=== PATIENT | male | born 1930 | race Hispanic/Latino ===

== ENCOUNTER 2019-08-12 15:21 | Inpatient (IN) | payer OTHER ==
[~2019-08-12] VITALS: Ht 172.7 cm; Wt 74.1 kg
--- OUTSIDE RECORDS SUMMARY | 2019-08-12 16:06 | XMS REPORT ---
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
--- OUTSIDE RECORDS SUMMARY | 2019-08-12 16:06 | XMS REPORT ---
Author Author Valerie Christiansen [facility] eClinicalWorks Address Unknown Phone Unavailable Care Team Providers Care Geotechnical Engineering Technician Name Role Phone Valerie Christiansen CP Unavailable Allergies, Adverse Reactions, Alerts Substance Reaction Event Type N.K.D.A. 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 Problem Osteoporosis M81.0 Active Medications Medication Code System Code Instructions Start Date End Date Status Dosage Simvastatin ND 99179096694 10 MG Orally Once a day Active 1 tablet in the evening Lisinopril ND 08198693856 30 MG Orally Once a day Active 1 tablet Alendronate Sodium ND 80951057845 70 MG Orally once a week Active 1 tablet Hydroxychloroquine Sulfate ND 72736832872 200 MG Orally twice a day February 26, 2018 Active 1 tablet with food or milk Folic Acid ND 59751112331 1 MG Orally Once a day Jul 08, 2018 Active 1 tablet Methotrexate NDC 0 2.5mg Orally Once a week Active 6 tablets GlipiZIDE-Metformin HCl ND 25298534872 2.5-500 MG Orally Once a day Active 1 tablet with a meal Vital Signs Date/Time: Aug 09, 2018 BMI 27.91 Index Weight 157.6 lbs Height 63 in Temperature 97.3 F Cardiac Monitoring Heart Rate 72 /min Blood Pressure Diastolic 66 mm Hg Blood Pressure Systolic 116 mm Hg Results Name Result Date Reference Range Unit Abnormality Flag 1055 SEDIMENTATION RATE ----SEDIMENTATION RATE 5 [id number] 0-15 MM/HOUR 1000 CBC W/AUTO DIFF ----PLATELET COUNT 148 15706311 130-400 K/UL ----MCV 94.3 74663147 80.0-100.0 fL ----HEMATOCRIT 38.2 36700243 37.0-49.0 % ----BASOPHILS 0.8 01253223 0.0-2.0 % ----MCHC 34.8 35506992 32.0-35.5 G/DL ----EOSINOPHILS 6.0 93891327 0.0-7.0 % ----MCH 32.8 93453865 27.0-34.0 PG ----MONOCYTES 7.2 09527781 4.0-13.0 % ----WBC 5.3 41216944 4.0-11.0 K/UL ----HEMOGLOBIN 13.3 51339530 13.0-17.0 G/DL ----RBC 4.05 [id number] 4.10-5.70 M/UL L ----LYMPHOCYTES 16.6 91938974 19.0-48.0 % L ----RDW 12.8 38469032 11.0-15.0 % ----NEUTROPHILS 69.4 27344958 40.0-74.0 % 9179 COMPREHENSIVE METABOLIC PANEL ----CALC A/G RATIO 1.4 98920984 1.0-2.6 RATIO ----CALC GLOBULIN 2.7 18673771 1.9-3.7 G/DL ----ALKALINE PHOSPHATASE 54 76920759 40-125 U/L ----BILIRUBIN, TOTAL 0.6 63429989 <=1.2 MG/DL ----CHLORIDE 103 63992522 95-107 MEQ/L ----ALT 12 93055892 5-50 U/L ----POTASSIUM 4.4 73999299 3.5-5.4 MEQ/L ----AST 19 79015964 9-50 U/L ----SODIUM 140 96479656 133-146 MEQ/L ----CALC BUN/CREAT 20 87147305 6-28 RATIO ---- eGFR NON- AMER. 69 19940397 >60 ML/MIN/1.73 ----CALCIUM 9.5 25917107 8.5-10.5 MG/DL ----CARBON DIOXIDE 27 20180809 19-31 MEQ/L ----ALBUMIN 3.9 20180809 3.5-5.2 G/DL ----PROTEIN, TOTAL 6.6 20180809 6.1-8.3 G/DL ----GLUCOSE 132 20180809 70-99 MG/DL H ----BUN 20 20180809 8-23 MG/DL ----CREATININE 0.99 20180809 0.80-1.40 MG/DL ---- eGFR AMER. 80 20180809 >60 ML/MIN/1.73 5083 HIGH SENSITIVITY CRP ----HIGH SENSITIVITY CRP 1.3 20180809 SEE BELOW MG/L Summary Purpose eClinicalWorks Submission
--- OUTSIDE RECORDS SUMMARY | 2019-08-12 16:06 | XMS REPORT ---
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
--- OUTSIDE RECORDS SUMMARY | 2019-08-12 16:06 | XMS REPORT ---
Author Author Valerie Christiansen Organization eClinicalWorks Address Unknown Phone Unavailable Care Team Providers Care Placement Assistant Name Role Phone Valerie Christiansen CP Unavailable [...] Instructions Start Date End Date Status Dosage Folic Acid [facility] 03574970314 1 MG Orally Once a day Jul 08, 2018 Active 1 tablet Results No Known Results Summary Purpose eClinicalWorks Submission
--- OUTSIDE RECORDS SUMMARY | 2019-08-12 16:06 | XMS REPORT ---
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 Problem Osteoporosis M81.0 Active Medications Medication Code System Code Instructions Start Date End Date Status Dosage Simvastatin ND 29262939899 10 MG Orally Once a day Active 1 tablet in the evening Folic Acid ND 23888190942 1 MG Orally Once a day March 14, 2018 Active 1 tablet Ibuprofen NDC 08310104641 200 MG Orally Three times a day Active 1 tablet with food or milk as needed Lisinopril NDC 18922672897 30 MG Orally Once a day Active 1 tablet Hydroxychloroquine Sulfate ND 73514163760 200 MG Orally twice a day February 26, 2018 Active 1 tablet with food or milk Methotrexate NDC 0 2.5mg Orally Once a week Active 6 tablets Alendronate Sodium ND 29264404211 70 MG Orally once a week Active 1 tablet GlipiZIDE-Metformin HCl ND 95523227505 2.5-500 MG Orally Once a day Active 1 tablet with a meal Vital Signs Date/Time: May 09, 2018 BMI 27.79 Index Weight 156.9 lbs Height 63 in Temperature 97.8 F Cardiac Monitoring Heart Rate 83 /min Blood Pressure Diastolic 69 mm Hg Blood Pressure Systolic 153 mm Hg Results No Known Results Summary Purpose eClinicalWorks Submission
--- OUTSIDE RECORDS SUMMARY | 2019-08-12 16:06 | XMS REPORT ---
Author Author Dwayne Guerrier Organization eClinicalWorks Address Unknown Phone Unavailable Care Team Providers Care Poker In Name Role Phone Dwayne Guerrier CP Unavailable [...]
--- OUTSIDE RECORDS SUMMARY | 2019-08-12 16:06 | XMS REPORT | Continuity of Care Document ---
Author Author [facility] Address Unknown Phone Unavailable Care Team Providers Care Warehouse Shipping Clerk Name Role Phone M2 [employer] [facility] Unavailable Unavailable Problems Problem Status Onset Date Classification Date Reported Comments Source Long-term use of high-risk medication Active Diagnosis 02/13/2019 Robe Guerrier Knee osteoarthritis Active Problem 02/13/2019 Robe Fareed Rash Active Problem 02/13/2019 Robe Fareed Inflammatory arthritis Active Problem 02/13/2019 Robe Guerrier Rheumatoid arthritis with positive rheumatoid factor Active Diagnosis 02/13/2019 Robe Guerrier Osteoporosis Active Diagnosis 02/13/2019 Robe Guerrier Back pain Active Diagnosis 02/13/2019 Robe Guerrier Medications Medication Details Route Status Patient Instructions Ordering Provider Order Date Source Methotrexate 6 tablets Orally Active 2.5mg Orally Once a week [place] 02/07/2019 Robe Guerrier Cyclobenzaprine HCl 1 tablet as needed Orally Active 5 MG Orally qhs [place] 02/07/2019 Robe Guerrier Folic Acid 1 tablet Orally Active 1 MG Orally Once a day [place] 07/08/2018 Robe Guerrier Methotrexate 4 tabs x1 wk, then take take 6 tab altogther Orally Active 2.5mg Orally Once a week [place] 03/14/2018 Robe Guerrier Folic Acid 1 tablet Orally Active 1 MG Orally Once a day [place] 03/14/2018 Robe Guerrier Prednisone Taper 3 tablets for 5 days, 2 tablets for 5 days and then 1 tablet for 5 days NA Active 5mg Kuldip 02/26/2018 Robe Guerrier Hydroxychloroquine Sulfate 1 tablet with food or milk Orally Active 200 MG Orally twice a day [place] 02/26/2018 Robe Guerrier Ibuprofen 1 tablet with food or milk as needed Orally Active 200 MG Orally Three times a day [place] Robe Guerrier GlipiZIDE-Metformin HCl 1 tablet with a meal Orally Active 2.5- 500 MG Orally Once a day [place] Robe Guerrier Lisinopril 1 tablet Orally Active 30 MG Orally Once a day Kuldip Guerrier Alendronate Sodium 1 tablet Orally Active 70 MG Orally once a week [place] Robe Guerrier Simvastatin 1 tablet in the evening Orally Active 10 MG Orally Once a day [place] Robe Guerrier Methotrexate 6 tablets Orally Active 2.5mg Orally Once a week Kuldip Guerrier Allergies, Adverse Reactions, Alerts Substance Category Reaction Severity Reaction type Status Date Reported Comments Source N.K.D.A. Adverse Reaction Info Not Available Adverse Reaction Active 02/07/2019 Robe Guerrier Immunizations Immunization Date Given Site Status Last Updated Comments Source pneumococcal 23-valent vaccine<sup>1</sup> 09/20/2007 Right deltoid completed [facility] 1Result Comment: [id number] [employer], exp 03/29/2009 ANATOLY [place] influenza virus vaccine, inactivated 09/20/2007 Left deltoid completed [facility] [place] Results No Data Provided for This Section Pathology Reports No Data Provided for This Section Diagnostic Reports Report Value Date Source Bone Density-Dual Energy Absorptionmetry - Bone Density- Dual Energy Absorptionmetry MALE BONE DENSITY EVALUATION: 03/20/2014 CLINICAL DATA: Osteoporosis. FINDINGS: Bone density evaluation was performed 03/20/2014 on the AP L1-L4 region of spine using Lunar Dual Energy X-Ray Absorptiometry. The BMD average for the exam is 1.093 g/cm2. The T-score is -1.10 and the Z-score is -0.30. These values indicate 96.0% for age-matched controls. This matches the World Health Organization's criteria for osteopenia and places the patient at a medium risk for fracture. An additional bone density evaluation was performed 03/20/2014 on the right femur neck using Lunar Dual Energy X-Ray Absorptiometry. The BMD average for the exam is 0.724 g/cm2. The T-score is -2.70 and the Z-score is -1.10. These values indicate 84.0% for age-matched controls. This matches the World Health Organization's criteria for osteoporosis and places the patient at a high risk for fracture. An additional bone density evaluation was performed 03/20/2014 on the right hip using Lunar Dual Energy X-Ray Absorptiometry. The BMD average for the exam is 0.763 g/cm2. The T-score is -2.30 and the Z-score is -1.10. These values indicate 82.0% for age-matched controls. This matches the World Health Organization's criteria for osteopenia and places the patient at a medium risk for fracture. An additional bone density evaluation was performed 03/20/2014 on the left femur neck using Lunar Dual Energy X-Ray Absorptiometry. The BMD average for the exam is 0.706 g/cm2. The T-score is -2.80 and the Z-score is -1.20. These values indicate 82.0% for age-matched controls. This matches the World Health Organization's criteria for osteoporosis and places the patient at a high risk for fracture. An additional bone density evaluation was performed 03/20/2014 on the left hip using Lunar Dual Energy X-Ray Absorptiometry. The BMD average for the exam is 0.785 g/cm2. The T-score is -2.20 and the Z-score is -1.00. These values indicate 85.0% for age-matched controls. This matches the World Health Organization's criteria for osteopenia and places the patient at a medium risk for fracture. IMPRESSION: OSTEOPOROSIS Patient is at high risk for fracture. Dr. Bennie robins/cathy:03/23/2014 08:02:05 Salon Stylist: Qi Jarrett [facility] 03[facility]20/2014 [facility] [place] Consultation Notes No Data Provided for This Section Discharge Summaries No Data Provided for This Section History and Physicals No Data Provided for This Section Vital Signs Vital Sign Value Date Comments Source Weight 158 02/07/2019 Robe Guerrier Height 63 02/07/2019 Robe Guerrier Temperature Oral (F) 96.6 F 02/07/2019 Robe Guerrier Heart Rate 80 02/07/2019 Robe Guerrier Diastolic (mm Hg) 84 02/07/2019 Robe Guerrier Systolic (mm Hg) 130 02/07/2019 Robe Guerrier Weight 158.4 11/08/2018 Robe Guerrier Height 64 11/08/2018 Robe Guerrier Temperature Oral (F) 97.6 F 11/08/2018 Robe Guerrier Heart Rate 64 11/08/2018 Robe Guerrier Diastolic (mm Hg) 70 11/08/2018 Robe Guerrier Systolic (mm Hg) 128 11/08/2018 Robe Guerrier Weight 157.6 08/09/2018 Robe Guerrier Height 63 08/09/2018 Robe Guerrier Temperature Oral (F) 97.3 F 08/09/2018 Robe Guerrier Heart Rate 72 08/09/2018 Robe Guerrier Diastolic (mm Hg) 66 08/09/2018 Robe Guerrier Systolic (mm Hg) 116 08/09/2018 Robe Guerrier Weight 156.9 05/09/2018 Robe Guerrier Height 63 05/09/2018 Robe Guerrier Temperature Oral (F) 97.8 F 05/09/2018 Robe Guerrier Heart Rate 83 05/09/2018 Robe Guerrier Diastolic (mm Hg) 69 05/09/2018 Robe Guerrier Systolic (mm Hg) 153 05/09/2018 Robe Guerrier Weight 154 04/25/2018 Robe Guerrier Height 63 04/25/2018 Robe Guerrier Temperature Oral (F) 97.4 F 04/25/2018 Robe Guerrier Heart Rate 74 04/25/2018 Robe Guerrier Diastolic (mm Hg) 68 04/25/2018 Robe Guerrier Systolic (mm Hg) 142 04/25/2018 Robe Guerrier Weight 149 03/14/2018 Robe Guerrier Height 63 03/14/2018 Robe Guerrier Temperature Oral (F) 96.7 F 03/14/2018 Robe Guerrier Heart Rate 76 03/14/2018 Robe Guerrier Diastolic (mm Hg) 80 03/14/2018 Robe Guerrier Systolic (mm Hg) 122 03/14/2018 Robe Guerrier Encounters Location Location Details Encounter Type Encounter Number Reason For Visit Attending Provider ADM Date DC Date Status Source [facility] [place] [facility] [id number] Mallorie Garcia 03/20/2014 03/21/2014 [facility] [place] Procedures No Data Provided for This Section Assessment and Plan No Data Provided for This Section Plan of Care No Data Provided for This Section Social History No Data Provided for This Section Family History No Data Provided for This Section Advance Directives No Data Provided for This Section Functional Status No Data Provided for This Section
--- OUTSIDE RECORDS SUMMARY | 2019-08-12 16:06 | XMS REPORT | Summary of Care ---
Author Organization Unknown Address Unknown Phone Unavailable Encounter HQ Encntr_alias(FIN) [id number] Date(s): 03/20/14 - 03/20/14 [facility] Outpatient Imaging - [address] [address] [place] Discharge Disposition: Home Physician Attending: Mallorie Garcia MD Reason for Visit 733.90 - BONE Problem List No data available for this section Allergies, Adverse Reactions, Alerts Substance Reaction Severity Status NKDA Active Medications No data available for this section Medications Administered During Your Visit No data available for this section Immunizations Vaccine Date Refusal Reason influenza virus vaccine, inactivated 09/20/07 pneumococcal 23-valent vaccine1 09/20/07 1Result Comment: [id number] [employer], exp 03/29/2009
--- OUTSIDE RECORDS SUMMARY | 2019-08-12 16:06 | XMS REPORT ---
Author Author Valerie Christiansen [facility] eClinicalWorks Address Unknown Phone Unavailable Care Team Providers Care Natural Resource Manager Name Role Phone Valerie Christiansen Unavailable Allergies, Adverse Reactions, Alerts Substance Reaction Event Type N.K.D.A. 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 Medications Medication Code System Code Instructions Start Date End Date Status Dosage Ibuprofen ND 66281051867 200 MG Orally Three times a day Active 1 tablet with food or milk as needed Methotrexate NDC 0 2.5mg Orally Once a week March 14, 2018 Jul 12, 2018 Active 4 tabs x1 wk, then take take 6 tab altogther Folic Acid ND 48339159064 1 MG Orally Once a day March 14, 2018 Jul 12, 2018 Active 1 tablet GlipiZIDE-Metformin HCl ND 11910978639 2.5-500 MG Orally Once a day Active 1 tablet with a meal Lisinopril ND 83932180262 30 MG Orally Once a day Active 1 tablet Prednisone Taper ND 82362118711 5mg February 26, 2018 March 14, 2018 Inactive 3 tablets for 5 days, 2 tablets for 5 days and then 1 tablet for 5 days Alendronate Sodium ND 46332638131 70 MG Orally Active 1 tablet Hydroxychloroquine Sulfate ND 45114195536 200 MG Orally twice a day February 26, 2018 Active 1 tablet with food or milk Simvastatin ND 16487229122 10 MG Orally Once a day Active 1 tablet in the evening Vital Signs Date/Time: March 14, 2018 BMI 26.39 Index Weight 149 lbs Height 63 in Temperature 96.7 F Cardiac Monitoring Heart Rate 76 /min Blood Pressure Diastolic 80 mm Hg Blood Pressure Systolic 122 mm Hg Results No Known Results Summary Purpose eClinicalWorks Submission
--- OUTSIDE RECORDS SUMMARY | 2019-08-12 16:06 | XMS REPORT ---
Author Author Valerie Christiansen [facility] eClinicalWorks Address Unknown Phone Unavailable Care Team Providers Care Supervisor Boilermaking Shop Name Role Phone Valerie Christiansen Unavailable Allergies, Adverse Reactions, Alerts Substance Reaction Event Type N.K.D.A. Info Not Available Non Drug Allergy Problems Problem Type Condition Code Onset Dates Condition Status Assessment Osteoporosis M81.0 Active Assessment Rheumatoid arthritis with [...] Instructions Start Date End Date Status Dosage GlipiZIDE-Metformin HCl ND 68788519085 2.5-500 MG Orally Once a day Active 1 tablet with a meal Alendronate Sodium ND 39594799256 70 MG Orally once a week Active 1 tablet Simvastatin ND 88118311858 10 MG Orally Once a day Active 1 tablet in the evening Methotrexate ND 18797546720 2.5mg Orally Once a week February 07, 2019 Active 6 tablets Lisinopril ND 19295816308 30 MG Orally Once a day Active 1 tablet Cyclobenzaprine HCl ND 62262589130 5 MG Orally qhs February 07, 2019 Active 1 tablet as needed Folic Acid ND 30275423849 1 MG Orally Once a day Jul 08, 2018 Active 1 tablet Hydroxychloroquine Sulfate ND 66485735775 200 MG Orally twice a day February 26, 2018 Active 1 tablet with food or milk Vital Signs Date/Time: February 07, 2019 BMI 28 Index Weight 158 lbs Height 63 in Temperature 96.6 F Cardiac Monitoring Heart Rate 80 /min Blood Pressure Diastolic 84 mm Hg Blood Pressure Systolic 130 mm Hg Results Name Result Date Reference Range Unit Abnormality Flag CBC W/AUTO DIFF ----MONOCYTES 8.0 98678987 4.0-13.0 % ----LYMPHOCYTES 13.9 06990806 19.0-48.0 % L ----HEMOGLOBIN 13.5 23658016 13.0-17.0 G/DL ----HEMATOCRIT 38.1 21239033 37.0-49.0 % ----MCV 94.3 48167986 80.0-100.0 fL ----MCH 33.4 33394450 27.0-34.0 PG ----MCHC 35.4 15783097 32.0-35.5 G/DL ----PLATELET COUNT 156 89652329 130-400 K/UL ----RDW 13.2 51294116 11.0-15.0 % ----BASOPHILS 0.7 17572621 0.0-2.0 % ----WBC 7.0 32991264 4.0-11.0 K/UL ----NEUTROPHILS 72.7 18982996 40.0-74.0 % ----RBC 4.04 49738711 4.10-5.70 M/UL L ----EOSINOPHILS 4.7 20560246 0.0-7.0 % C-REACTIVE PROTEIN ----C-REACTIVE PROTEIN 0.4 52495140 <0.5 MG/DL COMPREHENSIVE METABOLIC PANEL ----CALC A/G RATIO 1.8 01100008 1.0-2.6 RATIO ----CALC GLOBULIN 2.5 10317413 1.9-3.7 G/DL ----ALKALINE PHOSPHATASE 64 20190207 40-125 U/L ----BILIRUBIN, TOTAL 0.5 16288795 <=1.2 MG/DL ----CHLORIDE 103 20190207 95-107 MEQ/L ----ALT 12 76185385 5-50 U/L ----POTASSIUM 4.2 55484984 3.5-5.4 MEQ/L ----AST 19 20190207 9-50 U/L ----SODIUM 143 32340226 133-146 MEQ/L ----CALC BUN/CREAT 20 66971292 6-28 RATIO ---- eGFR NON- AMER. 66 20190207 >60 ML/MIN/1.73 ----CALCIUM 10.2 20190207 8.5-10.5 MG/DL ----CARBON DIOXIDE 27 20190207 19-31 MEQ/L ----ALBUMIN 4.5 20190207 3.5-5.2 G/DL ----PROTEIN, TOTAL 7.0 20190207 6.1-8.3 G/DL ----GLUCOSE 86 20190207 70-99 MG/DL ----BUN 20 20190207 8-23 MG/DL ----CREATININE 1.02 20190207 0.80-1.40 MG/DL ---- eGFR AMER. 76 20190207 >60 ML/MIN/1.73 SEDIMENTATION RATE ----SEDIMENTATION RATE 7 20190207 0-15 MM/HOUR Summary Purpose eClinicalWorks Submission
--- OUTSIDE RECORDS SUMMARY | 2019-08-12 16:06 | XMS REPORT ---
Author Author Valerie Christiansen [facility], [place] eClinicalWorks Address Unknown Phone Unavailable Care Team Providers Care Intermission Coordinator Name Role Phone Valerie Christiansen Unavailable Allergies, Adverse Reactions, Alerts Substance Reaction Event Type N.K.D.A. 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 Active Problem Osteoporosis M81.0 Active Medications Medication Code System Code Instructions Start Date End Date Status Dosage Alendronate Sodium [facility] 14315899929 70 MG Orally once a week Active 1 tablet Methotrexate NDC 0 2.5mg Orally Once a week Active 6 tablets Folic Acid ND 85299698212 1 MG Orally Once a day Jul 08, 2018 Active 1 tablet Simvastatin ND 83125292954 10 MG Orally Once a day Active 1 tablet in the evening GlipiZIDE-Metformin HCl ND 40130987349 2.5-500 MG Orally Once a day Active 1 tablet with a meal Hydroxychloroquine Sulfate ND 20779751531 200 MG Orally twice a day February 26, 2018 Active 1 tablet with food or milk Lisinopril ND 28108112577 30 MG Orally Once a day Active 1 tablet Vital Signs Date/Time: Nov 08, 2018 BMI 27.19 Index Weight 158.4 lbs Height 64 in Temperature 97.6 F Cardiac Monitoring Heart Rate 64 /min Blood Pressure Diastolic 70 mm Hg Blood Pressure Systolic 128 mm Hg Results Name Result Date Reference Range Unit Abnormality Flag CBC W/AUTO DIFF ----MONOCYTES 7.5 20181108 4.0-13.0 % ----LYMPHOCYTES 16.9 89756895 19.0-48.0 % L ----HEMOGLOBIN 13.2 36658516 13.0-17.0 G/DL ----HEMATOCRIT 37.0 75616359 37.0-49.0 % ----MCV 93.4 77537811 80.0-100.0 fL ----MCH 33.3 18958463 27.0-34.0 PG ----MCHC 35.7 41097307 32.0-35.5 G/DL H ----PLATELET COUNT 178 82055293 130-400 K/UL ----RDW 13.3 40018542 11.0-15.0 % ----WBC 6.0 93687202 4.0-11.0 K/UL ----NEUTROPHILS 68.4 65055769 40.0-74.0 % ----BASOPHILS 0.7 53797056 0.0-2.0 % ----RBC 3.96 93755104 4.10-5.70 M/UL L ----EOSINOPHILS 6.5 36111258 0.0-7.0 % C-REACTIVE PROTEIN ----C-REACTIVE PROTEIN 0.3 32996616 <0.5 MG/DL COMPREHENSIVE METABOLIC PANEL ----CALC A/G RATIO 1.5 97917344 1.0-2.6 RATIO ----CALC GLOBULIN 2.7 23156269 1.9-3.7 G/DL ----ALKALINE PHOSPHATASE 63 60859644 40-125 U/L ----BILIRUBIN, TOTAL 0.7 20181108 <=1.2 MG/DL ----CHLORIDE 104 19340290 95-107 MEQ/L ----ALT 15 71440730 5-50 U/L ----POTASSIUM 4.3 64958563 3.5-5.4 MEQ/L ----AST 30 20181108 9-50 U/L ----SODIUM 142 27045446 133-146 MEQ/L ----CALC BUN/CREAT 22 20181108 6-28 RATIO ---- eGFR NON- AMER. 73 77495616 >60 ML/MIN/1.73 ----CALCIUM 9.7 45669843 8.5-10.5 MG/DL ----CARBON DIOXIDE 27 20181108 19-31 MEQ/L ----ALBUMIN 4.0 20181108 3.5-5.2 G/DL ----PROTEIN, TOTAL 6.7 20181108 6.1-8.3 G/DL ----GLUCOSE 74 20181108 70-99 MG/DL ----BUN 21 20181108 8-23 MG/DL ----CREATININE 0.94 20181108 0.80-1.40 MG/DL ---- eGFR AMER. 84 20181108 >60 ML/MIN/1.73 SEDIMENTATION RATE ----SEDIMENTATION RATE 6 20181108 0-15 MM/HOUR Summary Purpose eClinicalWorks Submission
--- OUTSIDE RECORDS SUMMARY | 2019-08-12 16:06 | XMS REPORT ---
Author Author Valerie Christiansen Organization eClinicalWorks Address Unknown Phone Unavailable Care Team Providers Care Position Description Manager Name Role Phone Valerie Christiansen CP Unavailable Allergies, Adverse Reactions, Alerts Substance Reaction Event Type N.K.D.A. Info Not Available Non Drug Allergy Problems Problem Type Condition Code Onset Dates Condition Status Assessment Rash R21 Active Assessment Long-term use of high-risk medication Z79.899 Active Assessment Osteoporosis M81.0 Active Problem Long-term use of high-risk medication [...] Orally Once a week Active 6 tablets Simvastatin ND 97606726946 10 MG Orally Once a day Active 1 tablet in the evening Ibuprofen ND 99582822335 200 MG Orally Three times a day Active 1 tablet with food or milk as needed GlipiZIDE-Metformin HCl ND 29927962429 2.5-500 MG Orally Once a day Active 1 tablet with a meal Folic Acid ND 57374526341 1 MG Orally Once a day March 14, 2018 Active 1 tablet Alendronate Sodium ND 37279432669 70 MG Orally once a week Active 1 tablet Hydroxychloroquine Sulfate ND 59204589591 200 MG Orally twice a day February 26, 2018 Active 1 tablet with food or milk Lisinopril ND 60310311839 30 MG Orally Once a day Active 1 tablet Vital Signs Date/Time: April 25, 2018 BMI 27.28 Index Weight 154 lbs Height 63 in Temperature 97.4 F Cardiac Monitoring Heart Rate 74 /min Blood Pressure Diastolic 68 mm Hg Blood Pressure Systolic 142 mm Hg Results No Known Results Summary Purpose eClinicalWorks Submission
[2019-08-12 16:51] LABS: BASOPHILS % 0.4 % (0.0-1.0); EOSINOPHILS # (AUTO) 0.1 (0.0-0.4); EOSINOPHILS % 1.4 % (0.0-6.0); HEMATOCRIT 38.3 % (38.2-49.6); HEMOGLOBIN 13.1 g/dL (14.0-18.0); LYMPHOCYTES # (AUTO) 0.9 (1.0-3.2); LYMPHOCYTES % 12.4 % (18.0-39.1); MEAN CORPUSCULAR HEMOGLOBIN 33.3 pg (28-32); MEAN CORPUSCULAR HGB CONC 34.2 g/dL (31-35); MEAN CORPUSCULAR VOLUME 97.5 fL (81-99); MONOCYTES # (AUTO) 0.5 (0.2-0.8); MONOCYTES % 6.4 % (4.4-11.3); NEUTROPHILS # (AUTO) 5.8 (2.1-6.9); NEUTROPHILS % 79.1 % (38.7-80.0); PLATELET COUNT 156 x10e3/uL (140-360); RED BLOOD COUNT 3.93 x10e6/uL (4.3-5.7); RED CELL DISTRIBUTION WIDTH 14.1 % (11.7-14.4)
[2019-08-12 17:00] LABS: PROTHROMBIN TIME 13.7 seconds (11.9-14.5)
[2019-08-12 17:01] LABS: PARTIAL THROMBOPLASTIN TIME 29.4 seconds (23.8-35.5)
[2019-08-12 17:10] LABS: ALBUMIN 3.9 g/dL (3.5-5.0); ALBUMIN/GLOBULIN RATIO 1.3 (0.8-2.0); ANION GAP 14.3 mmol/L (8-16); CALCIUM 9.8 mg/dL (8.4-10.2); CREATININE, SERUM 1.35 mg/dL (0.72-1.25); POTASSIUM 4.3 mmol/L (3.5-5.1)
[2019-08-12 17:16] LABS: CREATINE KINASE MB 3.2 ng/mL (0-5.0)
[2019-08-12] MEDS ORDERED: ATROPINE SULFATE 1 MG/ML VIAL IV ONE (17:30)
[2019-08-12] MEDS ORDERED: ASPIRIN 81 MG CHEW TAB PO ONE ×2 (19:00→23:15)
--- NOTE | 2019-08-12 19:21 | NUR ---
REPORT TO JACKY CARDENAS
--- OUTSIDE RECORDS SUMMARY | 2019-08-12 20:26 | XMS REPORT | Continuity of Care Document ---
Author Author [employer] Address Unknown Phone Unavailable Care Team Providers Care Jack Strip Assembler Name Role Phone [employer] Unavailable Unavailable Problems Problem Status Onset Date [...] Active 1 MG Orally Once a day [place] 03/14/2018 Robe Guerrier Prednisone Taper 3 tablets [...] 200 MG Orally Three times a day [place] Robe Guerrier GlipiZIDE-Metformin HCl 1 tablet with [...] 09/20/2007 Right deltoid completed Kek 1Result Comment: [id number] [employer], exp 03/29/2009 ANATOLY [place] influenza virus vaccine, inactivated 09/20/2007 Left deltoid completed Kek [facility] [place] Results No Data Provided for This Section [...] risk for fracture. Dr. Bennie robins/cathy:03/23/2014 08:02:05 Podiatrist Orthopedic: Qi Jarrett [facility] 03[facility]20/2014 [facility] No Data Provided for This [...] Provider ADM Date DC Date Status Source [facility] - [place] [facility] Di[facility] [phone] Mallorie Garcia 03/20/2014 03/21/2014 [facility] [place] Procedures No Data Provided for This Section [...]
[2019-08-12] MEDS ORDERED: FOLIC ACID1 MG PO (20:34)
[2019-08-12] MEDS ORDERED: METHOTREXATE2.5 MG PO (20:34)
[2019-08-12] MEDS ORDERED: MELOXICAM15 MG PO (20:34)
[2019-08-12] MEDS ORDERED: GLIPIZIDE-METF1 EAC1 PO (20:34)
[2019-08-12] MEDS ORDERED: ALENDRONATE SOD70 MG PO (20:34)
[2019-08-12] MEDS ORDERED: HYDROXYCHLOROQ200 MG PO (20:34)
[2019-08-12] MEDS ORDERED: LISINOPRIL30 MG PO (20:34)
--- NOTE | 2019-08-12 21:59 | NUR ---
PER DR. HEMPHILL, CATH TEAM AND PLATE FITTER NOTIFIED OF NEED FOR IMMEDIATE PLACEMENT OF TEMP PACEMAKER
--- NOTE | 2019-08-12 22:12 | NUR ---
DR. HEMPHILL EN ROUTE TO FACILITY
--- NOTE | 2019-08-12 22:13 | NUR ---
DR. DOEWLL AT PTS BEDSIDE; PT/FAMILY INFORMED OF POC, TEMP PACEMAKER PROCEDURE; CONSENTS REVIEWED, ALL AGREED UPON, AND SIGNED BY PTS SPOUSE
--- NOTE | 2019-08-12 22:14 | NUR ---
CATH TEAM INSTRUCTED TO TRANSFER PT TO RESIDENT MANAGER PER DR. HEMPHILL
[2019-08-12] MEDS ORDERED: MIDAZOLAM HCL 2 MG/2 ML VIAL ONE (22:22)
[2019-08-12] MEDS ORDERED: SODIUM CHLORIDE 0.9% 500ML 500 ML ONE (22:23)
[2019-08-12] MEDS ORDERED: LIDOCAINE HCL 2% LOCAL 20 ML VIAL ONE (22:23)
[2019-08-12] MEDS ORDERED: FENTANYL CITRATE/PF 100MCG/2 ML INJ ONE (22:23)
--- NOTE | 2019-08-12 22:31 | NUR ---
PT TRANSFERRED TO MEDICAID BUSINESS ANALYST
--- NOTE | 2019-08-12 22:35 | Diagnostic Imaging Report ---
Examination: Single AP view of the chest. COMPARISON: None. INDICATION: Bradycardia IMPRESSION: 1. Lines and Tubes: None 2. Lungs are relatively well-inflated. Central pulmonary venous congestion and patchy interstitial opacities extending from the lorrie suggesting interstitial edema. Patchy airspace opacities are noted in the right upper lung, with mild tram tracking, may represent superimposed pneumonia or aspiration in area of bronchiectasis or bronchitis. No consolidation or effusion. 3. Cardiomediastinal silhouette is normal. 4. No acute bony abnormalities. Signed by: Dr. Chris Minor M.D. on 08/12/2019 10:31 PM
[2019-08-12] MEDS ORDERED: SODIUM CHLORIDE 0.9% 1000ML 1,000 ML ONE (22:43)
[2019-08-12] MEDS ORDERED: MORPHINE SULFATE INJ 4 MG/ML INJ 1ML IV PRN (23:15)
[2019-08-12] MEDS ORDERED: HYDRALAZINE HCL 20 MG/ML VIAL IV PRN (23:15)
[2019-08-12] MEDS ORDERED: HYDROCODONE/APAP 5MG-325MG TAB PO PRN (23:15)
[2019-08-12] MEDS ORDERED: ZOLPIDEM TARTRATE 5 MG TAB PO PRN (23:15)
[2019-08-12] MEDS ORDERED: ALENDRONATE SODIUM 70 MG TAB PO SCH (23:15)
[2019-08-12] MEDS ORDERED: ONDANSETRON HCL INJ 2MG/ML 2ML 2 MG/ML VIAL IV PRN (23:15)
[2019-08-12] MEDS ORDERED: ACETAMINOPHEN 325 MG TAB PO PRN (23:15)
[2019-08-12 23:33] VITALS: BP_SYST 169; BP_SYST 175; BP_DIAS 82; BP_DIAS 85
[2019-08-12 23:45] VITALS: BP 175/82
[2019-08-13] VITALS (26 sets, daily range): BP systolic 136–173; BP diastolic 58–95
[2019-08-13] MEDS: SODIUM CHLORIDE 0.9% 1000ML 1,000 ML IV SCH ×3 (00:06→18:59)
[2019-08-13] MEDS ORDERED: HYDROMORPHONE 1MG/1ML INJ IV PRN ×3 (01:15→05:15)
--- NOTE | 2019-08-13 02:38 | Operative Report ---
DATE OF PROCEDURE: 08/12/2019 SURGEON: Pawel Haas MD INDICATION: Complete heart block. PROCEDURES PERFORMED: 1. Transcutaneous pacing. 2. Transvenous pacemaker placement. COMPLICATIONS: None. RECOMMENDATIONS: Permanent pacemaker. DESCRIPTION OF PROCEDURE: Access obtained in the right femoral vein, 6-Irish sheath was placed. Balloon flotation temporary pacemaker was advanced to the right ventricular apex, secured in place with excellent threshold and capture. No complications. The patient transferred to the ICU in stable condition. Pawel Haas MD KSB/MODL /[id number]
--- NOTE | 2019-08-13 02:49 | Consultation ---
DATE OF CONSULTATION: 08/12/2019 Cardiac Consultation Note INDICATION: Bradycardia. HISTORY OF PRESENT ILLNESS: Mr. Mckeon is an 88-year-old gentleman with no past cardiac problems, was seen by his physician for weakness and bradycardia. He was diagnosed with complete heart block. He was referred to [facility] Emergency Room. He underwent emergency temporary transvenous pacemaker placement in preparation for permanent pacemaker. PAST MEDICAL HISTORY: Listed above. SOCIAL HISTORY: No smoking or drinking. FAMILY HISTORY: Noncontributory. REVIEW OF SYSTEMS: Negative except as dictated in the history of present illness. PHYSICAL EXAMINATION: VITAL SIGNS: Afebrile, heart rate 34, blood pressure 159/69, O2 sats 99%. CARDIOVASCULAR: Regular rhythm. Systolic murmur. Bradycardia. LUNGS: Clear to auscultation bilaterally. DIAGNOSTIC DATA: EKG shows a third-degree AV block with ventricular escape rhythm. Labs are reviewed. ASSESSMENT: Complete heart block. RECOMMENDATIONS: Transvenous pacemaker explained has been placed. Echocardiogram will be obtained. Permanent pacemaker. Electrophysiology consultation has been placed. MD SARABJIT Andrews/MODL /[id number]
--- NOTE | 2019-08-13 03:00 | NUR ---
Placement of dodge catheter. Pt aggitated stating cannot empty bladder and has voided 150 cc. Attempt x 1 of dodge 14 cayman islander unsuccessful with met resistance. Attempt x1 with coude 14 cayman islander catheter successful without complications noted. Sterile technique and protocol followed. Immediate return of 400 cc of pale dana urine noted. No complaints.
[2019-08-13 05:23] LABS: BASOPHILS % 0.6 % (0.0-1.0); EOSINOPHILS # (AUTO) 0.3 (0.0-0.4); EOSINOPHILS % 4.5 % (0.0-6.0); HEMATOCRIT 37.7 % (38.2-49.6); LYMPHOCYTES % 15.6 % (18.0-39.1); MEAN CORPUSCULAR HEMOGLOBIN 33.3 pg (28-32); MEAN CORPUSCULAR HGB CONC 34.5 g/dL (31-35); MEAN CORPUSCULAR VOLUME 96.7 fL (81-99); MONOCYTES # (AUTO) 0.5 (0.2-0.8); MONOCYTES % 8.2 % (4.4-11.3); NEUTROPHILS # (AUTO) 4.7 (2.1-6.9); NEUTROPHILS % 70.8 % (38.7-80.0); PLATELET COUNT 136 x10e3/uL (140-360); RED CELL DISTRIBUTION WIDTH 13.9 % (11.7-14.4)
[2019-08-13 05:57] LABS: CREATINE KINASE MB 3.3 ng/mL (0-5.0)
[2019-08-13 06:18] LABS: BLOOD UREA NITROGEN 20 mg/dL (7-26); BUN/CREATININE RATIO 20 (6-25); CALCIUM 9.4 mg/dL (8.4-10.2); CARBON DIOXIDE 22 mmol/L (22-29); CHLORIDE 105 mmol/L (98-107); CHOL/HDL RATIO 2.8 (3.9-4.7); CHOLESTEROL 130 MD/DL (0-199); CREATININE, SERUM 0.99 mg/dL (0.72-1.25); EST GLOMERULAR FILTRATION RATE > 60 ML/MIN (60-); GLUCOSE 105 mg/dL (74-118); HDL CHOLESTEROL 46 MG/DL (40-60); LDL CHOLESTEROL 71 MG/DL (60-130); SODIUM 136 mmol/L (136-145); TRIGLYCERIDES 67 MG/DL (0-149)
[2019-08-13 06:49] LABS: ALANINE AMINOTRANSFERASE 32 IU/L (0-55); ALBUMIN 3.7 g/dL (3.5-5.0); ALBUMIN/GLOBULIN RATIO 1.3 (0.8-2.0); ALKALINE PHOSPHATASE 60 IU/L (40-150); BLOOD UREA NITROGEN 19 mg/dL (7-26); BUN/CREATININE RATIO 19 (6-25); CALCIUM 9.4 mg/dL (8.4-10.2); CARBON DIOXIDE 21 mmol/L (22-29); CHLORIDE 105 mmol/L (98-107); CREATININE, SERUM 0.99 mg/dL (0.72-1.25); EST GLOMERULAR FILTRATION RATE > 60 ML/MIN (60-); GLUCOSE 101 mg/dL (74-118); SODIUM 137 mmol/L (136-145)
--- NOTE | 2019-08-13 07:15 | NUR ---
Call to answering service to notify Dr Parks of new consult.
[2019-08-13 08:29] LABS: EOSINOPHILS % (MANUAL) 5 % (0-7); LYMPHOCYTES % (MANUAL) 16 % (19-48); MONOCYTES % (MANUAL) 7 % (3.4-9.0); NEUTROPHILS % (MANUAL) 72 % (40-74); PLATELET ESTIMATE MODERATELY DECREASED
[2019-08-13 08:30] LABS: PLATELET MORPHOLOGY COMMENT FEW LARGE; RBC MORPHOLOGY COMMENT NORMAL
[2019-08-13] MEDS ORDERED: DEXTROSE 50% SYRINGE 50 ML IV PRN (08:45)
[2019-08-13] MEDS: HYDROXYCHLOROQUINE SULFATE 200 MG TAB PO SCH (09:00)
[2019-08-13] MEDS: FOLIC ACID 1 MG TAB PO SCH (09:00)
[2019-08-13] MEDS: ASPIRIN 325 MG TAB EC PO SCH (09:44)
[2019-08-13] MEDS: INSULIN LISPRO 100 UNIT/1 ML 3ML VIAL SQ SCH ×3 (11:30→21:00)
--- NOTE | 2019-08-13 13:06 | NUR ---
called and spoke to daughter, this RN went in room for consent daughter states she would still like her mother and patient to meet MDs prior to signing consent.
--- NOTE | 2019-08-13 14:26 | Consultation ---
DATE OF CONSULTATION: Pulmonary Consult Patient of Dr. Knapp and Dr. Zimmerman, and Dr. Haas. HISTORY OF PRESENT ILLNESS: Myar, 88-year-old gentleman, lying supine in the ICU, admitted with weakness for approximately 1 week and near syncope, found to be bradycardic with complete heart block in Dr. Zimmerman' office and was referred to the ER. PAST MEDICAL HISTORY: History of rheumatoid arthritis, diabetes, hypertension, remote carcinoma of the colon. MEDICATIONS: Have included metformin, lisinopril, meloxicam, alendronate, folic acid, Plaquenil, methotrexate. SOCIAL HISTORY: Worked as a gay. Born in [facility]. Social drinker in the past, nonsmoker. FAMILY HISTORY: Noncontributory. PHYSICAL EXAMINATION: GENERAL: He is a well-developed white male, looking stated age. VITAL SIGNS: Temperature 98, pulse 60 and paced, 34 on admission; respirations 16, and blood pressure 151/70. HEAD: Normocephalic, atraumatic. EYES: Extraocular movements intact. LUNGS: Clear anteriorly. HEART: Regular rhythm. ABDOMEN: Nontender. EXTREMITIES: Right femoral pacemaker. PLAN: Plan is for continue monitoring blood pressure, blood sugar. Continue home medications. Permanent pacer today. Thank you for this kind referral. Case was discussed with Dr. Knapp. MD SHANTELL Blair/MODL /[id number]
[2019-08-13 14:38] LABS: CREATINE KINASE MB 3.2 ng/mL (0-5.0)
--- NOTE | 2019-08-13 15:27 | History and Physical ---
PRIMARY CARE PHYSICIAN: Rony Rodriguez MD. CONSULTANTS: 1. Pawel Haas MD. 2. . CHIEF COMPLAINT: Bradycardia, heart block, sick sinus syndrome. HISTORY: The patient is an 88-year-old male with no past medical history of any cardiac problem. The patient was seen by his family physician and was subsequently sent to the emergency room for generalized weakness and low heart rate in the 30-40. The patient has a complete heart block in the emergency room. The patient subsequently underwent emergency temporary transvenous pacemaker placement in the right groin area. The patient is pending for permanent pacemaker. PAST MEDICAL HISTORY: Hypertension, diabetes type 2, rheumatoid arthritis, osteoarthritis, and osteoporosis. PAST SURGICAL HISTORY: Noncontributory. SOCIAL HISTORY: The patient does not smoke or use alcohol, no regular drug. ALLERGIES: NO KNOWN ALLERGIES. HOME MEDICATIONS: List reviewed. REVIEW OF SYSTEMS: Fatigueness and bradycardia. PHYSICAL EXAMINATION: VITAL SIGNS: Temperature was 98, blood pressure 147/74, pacing at 60 beats per minute. Prior to that was 34 beats per minute with heart block. HEENT: Normocephalic and atraumatic. Pupils reactive. Anicteric. NECK: Supple grossly. PULMONARY: Diminished breath sounds. CARDIOVASCULAR: Heart block, bradycardia. ABDOMEN: Soft. EXTREMITIES: No cyanosis or edema. NEUROLOGIC: No focal deficit. LABORATORY DATA: WBC 7.3, hemoglobin 13, hematocrit 38, and platelets is 156. Chemistry; sodium 136, potassium 4.3, chloride 103, bicarb 23, BUN 25, creatinine 1.35, and glucose 177. Chest x-ray, fluid overload. IMPRESSION: 1. Complete heart block. 2. Bradycardia. 3. Acute vascular congestion secondary to heart block. 4. Multiple chronic baseline problems. PLAN: Temporary transvenous pacing is going right now. The patient is pending for permanent pacemaker. We will hold off on oral medication. We will continue with supportive measure. Check thyroid function test. MD NICK Vigil/MODL /[id number]
[2019-08-13] MEDS ORDERED: LIDOCAINE HCL 2% LOCAL 20 ML VIAL ONE (15:55)
[2019-08-13] MEDS ORDERED: BACITRACIN 50,000 UNIT VIAL ONE (15:55)
[2019-08-13] MEDS ORDERED: VANCOMYCIN 1GM/NS 250 ML 250 ML ONE (15:56)
[2019-08-13] MEDS ORDERED: SODIUM CHLORIDE 0.9% 1000ML 2,000 ML ONE (15:56)
[2019-08-13] MEDS ORDERED: FENTANYL CITRATE/PF 100MCG/2 ML INJ ONE (16:09)
[2019-08-13] MEDS ORDERED: MIDAZOLAM HCL 2 MG/2 ML VIAL ONE (16:09)
--- NOTE | 2019-08-13 16:30 | NUR ---
PT TAKEN FOR PACEMAKER PLACEMENT.
[2019-08-13] MEDS ORDERED: SODIUM CHLORIDE 0.9% 500ML 500 ML ONE (16:51)
[2019-08-13] MEDS ORDERED: ACETAMINOPHEN/CODEINE 300MG - 30MG TAB PO PRN (18:30)
--- NOTE | 2019-08-13 18:32 | NUR ---
PT BACK FROM PACEMAKER PLACEMENT, PRESSURE DRESSING IN PLACE TO L UPPER CHEST. TEMP PACEMAKER AND SHEATH REMOVED TO R GROIN, DRESSING IN PLACE CDI NO S/S OF HEMATOMA, WILL CONTINUE TO MONITOR CLOSELY Addendum: 08/13/19 at 1836 by Maya Sawant RN PRESCRIPTION FROM DR.CUELLAR NG IN CHART
--- NOTE | 2019-08-13 19:58 | Diagnostic Imaging Report ---
EXAMINATION: CHEST SINGLE (PORTABLE) INDICATION: ^S/P PACEMAKER PLACEMENT COMPARISON: 08/12/2019 FINDINGS: TUBES and LINES: Left chest dual lead cardiac device. LUNGS: Lungs are well inflated. Central pulmonary venous congestion and patchy interstitial opacities extending from the lorrie suggesting interstitial edema. Patchy airspace opacities are noted in the right upper lung, with mild tram tracking, may represent superimposed pneumonia or aspiration in area of bronchiectasis or bronchitis There is no evidence of consolidated pneumonia PLEURA: No pleural effusion or pneumothorax. HEART AND MEDIASTINUM: The cardiomediastinal silhouette is unremarkable. BONES AND SOFT TISSUES: No acute osseous lesion. Soft tissues are unremarkable. UPPER ABDOMEN: No free air under the diaphragm. IMPRESSION: Left chest dual-lead cardiac device. No pneumothorax is seen. Signed by: Dr. Jaun Mars M.D. on 08/13/2019 7:04 PM
[2019-08-13] MEDS: CEFAZOLIN SOD 2 GM/D5W 50ML 50 ML IV SCH (21:46)
[2019-08-13] MEDS ORDERED: CEFAZOLIN SOD 1 GM VIAL IV SCH (22:00)
[2019-08-14] VITALS (21 sets, daily range): BP systolic 107–169; BP diastolic 60–102
--- NOTE | 2019-08-14 00:38 | Progress Note ---
DATE: 08/13/2019 Cardiology Progress Note SUBJECTIVE: The patient denies chest pain or shortness of breath. OBJECTIVE: VITAL SIGNS: Temperature 97.5 degrees, pulse 60, respiratory rate 15, blood pressure 157/85, and oxygen saturation 98% on room air. GENERAL: Awake, alert, in no acute distress. LUNGS: Clear to auscultation bilaterally. No wheeze or crackles. CARDIOVASCULAR: Normal rate, regular rhythm. No murmur. Normal S1 and S2. ABDOMEN: Soft and nontender. EXTREMITIES: No edema. CARDIAC MEDICATIONS: Aspirin 325 mg p.o. daily. LABORATORY DATA: WBC 6.62, hemoglobin 13, hematocrit 37.7, platelets 136. Sodium 136, potassium 4, chloride 105, CO2 of 22, BUN 20, creatinine 0.99. Troponin 0.108. Cholesterol 130, LDL 71, HDL 46, triglycerides 67, TSH 1.360. TELEMETRY: Complete heart block with ventricular pacing. IMPRESSION: 1. Third-degree heart block with ventricular escape rhythm. 2. Hypertension. 3. Diabetes mellitus type 2. 4. Rheumatoid arthritis. RECOMMENDATIONS: EP has been consulted with plan for a dual-chamber pacemaker today. Echocardiogram was reviewed. His LV function is preserved. Resume home cardiac medication specifically lisinopril for blood pressure control. Monitor the patient on telemetry. Check BNP given evidence of pulmonary vascular congestion on chest x-ray. Given risk factors and presentation, recommend nuclear stress test as an outpatient. Thank you for this consult. We will continue to follow. Sabi Hou MD ABS/MODL /[id number]
--- NOTE | 2019-08-14 04:04 | Consultation ---
DATE OF CONSULTATION: 08/13/2019 REASON FOR CONSULT: Complete heart block. HISTORY OF PRESENT ILLNESS: This is an 88-year-old gentleman with a history of hypertension, who presented complaining of dizziness. He was found to have complete heart block with escape rhythm in the 20s. He underwent emergent placement of temporary wire from the right groin and stayed in the ICU. The patient had 60 overnight during 24-hour observation. He is conduction has not recovered. He has no underlying rhythm whatsoever at this time and he is pacing from the temporary wire. We were consulted to consider a pacemaker. He has a normal ejection fraction. REVIEW OF SYSTEMS: CONSTITUTIONAL: Negative. CARDIOVASCULAR: As per HPI. RESPIRATORY: Negative. GASTROINTESTINAL: Negative. GENITOURINARY: Negative. MUSCULOSKELETAL: Negative. EYES: Negative. ENT: Negative. ALLERGY/IMMUNOLOGY: Negative. PSYCHIATRIC: Negative. PAST MEDICAL HISTORY: Hypertension. SURGICAL HISTORY: Negative. SOCIAL HISTORY: Denies smoking, alcohol. FAMILY HISTORY: No premature coronary artery disease. PHYSICAL EXAMINATION: VITAL SIGNS: Blood pressure 140/60, pulse 60, respirations 20, and O2 saturation 98%. GENERAL: No acute distress. HEENT: Moist mucous membranes. CARDIOVASCULAR: Regular. RESPIRATORY: Clear. ABDOMEN: Soft and nontender. MUSCULOSKELETAL: 2+ distal pulses. NEUROLOGICAL: No focal deficits. SKIN: No lesions. PSYCHIATRIC: Normal thought process. LABORATORY DATA: EKG sinus rhythm, complete heart block. IMPRESSION: 1. Complete heart block. No reversible causes, has not resolved after 24 hours. 2. Temporary pacer in place. RECOMMENDATIONS: Discussed with the patient and family. Plan to undergo a permanent pacemaker. This was discussed in detail with benefits and risks. The patient voiced understanding and wished to proceed. Keny Shin MD JRC/MODL /[id number]
--- NOTE | 2019-08-14 04:45 | Operative Report ---
DATE OF PROCEDURE: 08/13/2019 SURGEON: Keny Shin MD PREPROCEDURE DIAGNOSES: 1. Complete heart block. 2. Temporary pacer in place. POSTPROCEDURE DIAGNOSES: 1. Complete heart block. 2. Temporary pacer in place. ESTIMATED BLOOD LOSS: 5 mL. COMPLICATIONS: None. PROCEDURES PERFORMED: 1. Dual chamber pacemaker placement. 2. Removal of temporary pacer. 3. Moderate sedation. Moderate conscious sedation was provided under my direct supervision by a sedation trained nurse. Sedation is approximately 30 minutes, Versed and fentanyl. There were no complications. See sedation form for details. DESCRIPTION OF PROCEDURE: After informed consent was obtained, the patient was brought to the electrophysiology laboratory in a fasting, nonsedated state. The area over his chest was prepped and draped in the usual sterile fashion. Moderate sedation and prophylactic antibiotics were given. 1% lidocaine was used as local anesthetic and a 3 cm skin incision was made in the left subclavicular area. Electrocautery, sharp and blunt dissection were used to bridge the muscular fascia and a pocket was created for event implantation of the device. Vascular access was obtained x2 in the left axillary vein using the modified Seldinger technique under fluoroscopic guidance. Two 6-Armenian sheaths were placed. Ventricular lead advanced to the RV apex. R-wave 8 pacing 0.4 at 0.3. The atrial lead to the right atrial appendage P-wave 2, pacing threshold 0.4. Sheaths were removed from the body. Leads were secured to the fascia. Using Ethibond. Pocket was irrigated with antibiotic solution using the pulse sales enablement consultant. Hemostasis was meticulous. Leads were connected to the device and entire pacemaker system placed in the pocket. Incision was closed using absorbable sutures and Dermabond. The patient tolerated the procedure well. Procedure was then completed. We then removed the temporary pacer from the right groin under fluoroscopy without any issues. SUMMARY OF HARDWARE IMPLANTED: 1. Renal pacemaker is Medtronic, serial #[id number]. 2. The atrial lead is Medtronic #[id number]. 3. The ventricular lead is Medtronic #[id number]. IMPRESSION: 1. Successful dual-chamber pacemaker implant via left axillary vein. 2. Successful removal of temporary pacing wire. RECOMMENDATIONS: 15% monitoring in the ICU. Chest x-ray. Follow up in two weeks. MD MAXIMINO Latham/JIMBO /[id number]
[2019-08-14] MEDS: SODIUM CHLORIDE 0.9% 1000ML 1,000 ML IV SCH (05:14)
[2019-08-14] MEDS: CEFAZOLIN SOD 2 GM/D5W 50ML 50 ML IV SCH ×2 (06:07→13:55)
[2019-08-14] MEDS: INSULIN LISPRO 100 UNIT/1 ML 3ML VIAL SQ SCH ×4 (07:30→21:00)
[2019-08-14] MEDS: ASPIRIN 325 MG TAB EC PO SCH (09:04)
[2019-08-14] MEDS: HYDROXYCHLOROQUINE SULFATE 200 MG TAB PO SCH (09:04)
[2019-08-14] MEDS: FOLIC ACID 1 MG TAB PO SCH (09:04)
[2019-08-14 09:46] LABS: ANION GAP 12.9 mmol/L (8-16); BLOOD UREA NITROGEN 13 mg/dL (7-26); BUN/CREATININE RATIO 13 (6-25); CALCIUM 8.9 mg/dL (8.4-10.2); CARBON DIOXIDE 21 mmol/L (22-29); CHLORIDE 106 mmol/L (98-107); CREATININE, SERUM 0.99 mg/dL (0.72-1.25); EST GLOMERULAR FILTRATION RATE > 60 ML/MIN (60-); GLUCOSE 177 mg/dL (74-118); POTASSIUM 3.9 mmol/L (3.5-5.1); SODIUM 136 mmol/L (136-145)
[2019-08-14] MEDS: FUROSEMIDE INJ 10 MG/ML 2 ML VIAL IV SCH ×2 (10:01→16:17)
--- NOTE | 2019-08-14 13:53 | Progress Note ---
DATE: 08/14/2019 Cardiology Progress Note SUBJECTIVE: The patient denies chest pain or shortness of breath. He underwent successful dual-lead pacemaker placement by Dr. Shin yesterday. OBJECTIVE: VITAL SIGNS: Temperature 97.9 degrees, pulse 87, respiratory rate 19, blood pressure 144/91, and oxygen saturation 94% on room air. GENERAL: Awake, alert, elderly man, in no acute distress. LUNGS: Clear to auscultation bilaterally. No wheezes or crackles. CARDIOVASCULAR: Normal rate, regular rhythm. No murmur. Normal S1, S2. ABDOMEN: Soft, nontender. EXTREMITIES: No edema. CARDIAC MEDICATIONS: Furosemide 20 mg IV b.i.d., aspirin 325 mg p.o. daily, and lisinopril 30 mg p.o. daily. LABORATORY DATA: Sodium 136, potassium 3.9, chloride 106, CO2 of 21, BUN 13, creatinine 0.99. TELEMETRY: 1. Atrial-sensed/ventricular-paced rhythm. IMPRESSION: 1. Complete heart block, status post dual-chamber permanent pacemaker implantation. 2. Hypertension. 3. Diabetes mellitus type 2. 4. Rheumatoid arthritis. RECOMMENDATIONS: I appreciate EP with assistance with dual-chamber pacemaker placement. Echocardiogram does show normal LV systolic function. Continue current cardiac medications. His blood pressure is acceptable for age. Continued diuretics given evidence of pulmonary vascular congestion, elevated BNP. Given the patient's risk factors recommend the patient undergo nuclear stress test as an outpatient. Thank you for this consult. We will continue to follow. Sabi Hou MD ABS/MODL /[id number]
[2019-08-14] MEDS: VANCOMYCIN 1GM/NS 250 ML 250 ML IV SCH (16:17)
[2019-08-15] VITALS (9 sets, daily range): BP systolic 108–171; BP diastolic 56–76
[2019-08-15 06:05] LABS: ANION GAP 13.8 mmol/L (8-16); BLOOD UREA NITROGEN 18 mg/dL (7-26); BUN/CREATININE RATIO 17 (6-25); CALCIUM 8.9 mg/dL (8.4-10.2); CARBON DIOXIDE 23 mmol/L (22-29); CHLORIDE 106 mmol/L (98-107); CREATININE, SERUM 1.05 mg/dL (0.72-1.25); EST GLOMERULAR FILTRATION RATE > 60 ML/MIN (60-); GLUCOSE 92 mg/dL (74-118); POTASSIUM 3.8 mmol/L (3.5-5.1); SODIUM 139 mmol/L (136-145)
[2019-08-15] MEDS: INSULIN LISPRO 100 UNIT/1 ML 3ML VIAL SQ SCH ×4 (07:28→21:18)
[2019-08-15] MEDS: FOLIC ACID 1 MG TAB PO SCH (08:20)
[2019-08-15] MEDS: HYDROXYCHLOROQUINE SULFATE 200 MG TAB PO SCH (08:20)
[2019-08-15] MEDS: ASPIRIN 325 MG TAB EC PO SCH (08:20)
[2019-08-15] MEDS: LISINOPRIL 20 MG TAB PO SCH (08:20)
[2019-08-15] MEDS: FUROSEMIDE INJ 10 MG/ML 2 ML VIAL IV SCH ×2 (08:20→17:00)
[2019-08-15] MEDS: METOPROLOL TARTRATE 25 MG TAB PO SCH ×2 (09:58→17:00)
--- NOTE | 2019-08-15 11:25 | NUR ---
RCD PT FROM ICU BY WHEEL CHAIR PT IS ALERT AND ORIENTED VITALS CHECKED PT RESTING ON BED FAMILY AT BED SIDE BED LOW AND LOCKED CALL LIGHT IN REACH
--- NOTE | 2019-08-15 11:30 | NUR ---
patient transferred to room 209. family at bedside
[2019-08-15] MEDS: VANCOMYCIN 1GM/NS 250 ML 250 ML IV SCH (16:00)
--- NOTE | 2019-08-15 19:16 | NUR ---
PT IS RESTING IN BED WITH FAMILY AT BEDSIDE. RESPIRATION IS EVEN AND UNLABORED, NO DISTRESS NOTED. BED IN THE LOWEST POSITION, LOCKED, BED ALARM ON, AND CALL LIGHT WITHIN REACH. WILL CONTINUE TO MONITOR.
--- NOTE | 2019-08-15 21:15 | Progress Note ---
DATE: 08/15/2019 Cardiology Progress Note SUBJECTIVE: The patient denies chest pain or shortness of breath. OBJECTIVE: VITAL SIGNS: Temperature 97.4 degrees, pulse 88, respiratory rate is 14, blood pressure 115/62, and oxygen saturation is 95% on room air. GENERAL: Elderly man, in no acute distress, awake and alert. LUNGS: Clear to auscultation bilaterally. No wheezes or crackles. CARDIOVASCULAR: Normal rate, regular rhythm. No murmur. Normal S1, S2. ABDOMEN: Soft, nontender. EXTREMITIES: No edema. CARDIAC MEDICATIONS: Metoprolol tartrate 25 mg p.o. b.i.d., furosemide 20 mg IV b.i.d., lisinopril 30 mg p.o. daily, and aspirin 325 mg p.o. daily. LABORATORY DATA: Sodium 139, potassium 3.8, chloride 106, CO2 of 23, BUN 18, and creatinine 1.05. Telemetry, A-sensed/V-paced. IMPRESSION AND PLAN: 1. Complete heart block, status post dual-chamber permanent pacemaker implantation. 2. Hypertension. 3. Diabetes mellitus, type 2. 4. Rheumatoid arthritis. 5. The patient is status post dual-chamber permanent pacemaker placement for his complete heart block. He was noted to have multifocal atrial tachycardia during device implantation. We will start patient on metoprolol tartrate. Continue current cardiac medications otherwise. As the patient is clinically improved, he may follow up as an outpatient for nuclear stress test for ischemic evaluation with a pharmacologic nuclear stress test. Thank you for this consult. We will continue to follow. Sabi Hou MD ABS/MODL /[id number]
[2019-08-16 00:31] VITALS: BP 160/73
[2019-08-16 06:21] VITALS: BP 172/77
--- NOTE | 2019-08-16 07:10 | NUR ---
RCD PT AT BED PT IS ALERT AND ORIENTED PT RESTING ON BED IV PATENT BY SALINE FLUSH BED LOW AND LOCKED CALL LIGHT IN REACH
[2019-08-16] MEDS: INSULIN LISPRO 100 UNIT/1 ML 3ML VIAL SQ SCH ×3 (07:30→16:30)
[2019-08-16 07:51] VITALS: BP 167/79
[2019-08-16] MEDS: LISINOPRIL 20 MG TAB PO SCH (09:00)
[2019-08-16] MEDS: HYDROXYCHLOROQUINE SULFATE 200 MG TAB PO SCH (09:00)
[2019-08-16] MEDS: ASPIRIN 325 MG TAB EC PO SCH (09:00)
[2019-08-16] MEDS: METOPROLOL TARTRATE 25 MG TAB PO SCH ×2 (09:00→16:53)
[2019-08-16] MEDS: FOLIC ACID 1 MG TAB PO SCH (09:00)
[2019-08-16] MEDS: FUROSEMIDE INJ 10 MG/ML 2 ML VIAL IV SCH ×2 (09:00→16:53)
[2019-08-16 10:00] VITALS: BP 167/79
[2019-08-16 11:38] VITALS: BP 156/65
[2019-08-16 16:00] VITALS: BP 137/67
[2019-08-16] MEDS: VANCOMYCIN 1GM/NS 250 ML 250 ML IV SCH (16:00)
[2019-08-16] MEDS ORDERED: LOPRESSOR25 MG PO (17:17)
[2019-08-16] MEDS ORDERED: LASIX20 MG PO (17:18)
[2019-08-16] MEDS ORDERED: TYLENOL WITH C1 EACH PO (17:18)
[2019-08-16] MEDS ORDERED: ZOFRAN4 MG PO (17:19)
--- NOTE | 2019-08-16 18:08 | NUR ---
PATIENT WENT HOME IN SAFE CONDITION WITH HIS SON
--- NOTE | 2019-08-16 18:25 | Progress Note ---
DATE: Cardiology Progress Note SUBJECTIVE: The patient is without any new complaints. He states that he feels very well. OBJECTIVE: VITAL SIGNS: Temperature 96.3, pulse 65, respiratory rate 19, blood pressure 156/65, oxygen saturation 96% on room air. GENERAL: Alert and oriented x3. Resting comfortably in the chair. Does not appear to be in acute distress. Family at the bedside. NECK: Supple. No JVD noted. LUNGS: Clear to auscultation throughout. No wheezing, no rhonchi or crackles. CARDIOVASCULAR: Normal rate and rhythm. No murmurs, no gallops. Recent pacemaker site looks well. No signs of infection. ABDOMEN: Soft, nontender. EXTREMITIES: Lower extremity, no edema. CARDIOVASCULAR MEDICATIONS: 1. Metoprolol 25 mg p.o. b.i.d. 2. Lasix 20 mg p.o. b.i.d. 3. Lisinopril 30 mg p.o. daily. 4. Aspirin 325 p.o. daily. LABORATORY DATA: No new labs today. TELEMETRY: V-paced rhythm. IMPRESSION: 1. Complete heart block, status post dual-chamber pacemaker implantation. 2. Hypertension. 3. Diabetes mellitus type 2. 4. Rheumatoid arthritis. RECOMMENDATION: This patient has had a pacemaker implanted and site looks well. Metoprolol was initiated due to multifocal atrial tachycardia noted on device implant. We will continue to monitor patient. Continue the rest of the above-listed cardiac medication. Upon discharge, the patient will need a prescription for minocycline given recent device implantation. Also as outpatient, he will need ischemic workup with a pharmacologic nuclear stress test. The patient has been advised on the above and we will continue to follow this patient. The patient is stable enough to be discharged from a cardiac standpoint. Dictated by Rebeca Bettencourt, KINGSLEY MD JANEE Andrews/JIMBO /[id number]
--- NOTE | 2019-08-17 04:43 | Discharge Summary ---
PRIMARY CARE PHYSICIAN: Dr. Rony Rodriguez. CONSULTANTS: 1. Dr. Gianni Parks, ICU Care. 2. Dr. Keny Shin. 3. Dr. Pawel Haas. FINAL DIAGNOSES: 1. Sick sinus syndrome with third-degree heart block, status post left dual-chamber permanent pacemaker placement by Dr. Shin. 2. Hypertension. SUMMARY: The patient is an 88 years old male, who came in with heart rate in the 30 to 40. The patient has a complete heart block. He had a temporary pacer placed in the entry of the right groin area and then subsequently had a dual-chamber permanent pacemaker placed in his left upper chest. The patient is otherwise stable. His pacing is 60 to 65 beats per minute. The patient is comfortable. He is going to go home today. He will continue to follow as an outpatient with Dr. Pawel Haas. DISCHARGE MEDICATIONS: 1. Lopressor 25 mg twice a day. 2. Lasix 20 mg daily. 3. Tylenol No. 3 p.r.n. for pain. 4. Zofran p.r.n. for nausea and vomiting. The patient is otherwise stable. Physical therapy and education on the left upper extremity immobilization and not usage done by physical therapist. MD NICK Vigil/SIMONL /[id number]
[2019-08-18] MEDS ORDERED: METHOTREXATE SOD 2.5 MG TAB PO SCH (09:00)
== END 2019-08-16 18:08 | disposition home or self-care (01) | DRG 243 ==
LOC: ER 15:21 → ERHOLD 18:50 → ICU 23:30 → MED/SURG2 08-15 12:04
PROVIDERS: ADMIT Internal Medicine; ATTEND Internal Medicine
PROC: 5A1223Z Performance of Cardiac Pacing, Continuous (ICD-10-PCS; 2019-08-12)
PROC: 0JH606Z Insertion of Pacemaker, Dual Chamber into Chest Subcutaneous Tissue and Fascia, Open Approach (ICD-10-PCS; principal; 2019-08-13)
PROC: 02H63JZ Insertion of Pacemaker Lead into Right Atrium, Percutaneous Approach (ICD-10-PCS; 2019-08-13)
PROC: 02HK3JZ Insertion of Pacemaker Lead into Right Ventricle, Percutaneous Approach (ICD-10-PCS; 2019-08-13)
DX: I44.2 Atrioventricular block, complete (principal); J81.1 Chronic pulmonary edema; I49.5 Sick sinus syndrome; I10 Essential (primary) hypertension; E11.9 Type 2 diabetes mellitus without complications; M06.9 Rheumatoid arthritis, unspecified; M19.90 Unspecified osteoarthritis, unspecified site; M81.0 Age-related osteoporosis without current pathological fracture; I47.1 Supraventricular tachycardia; Z85.038 Personal history of other malignant neoplasm of large intestine; Z79.84 Long term (current) use of oral hypoglycemic drugs; Z79.899 Other long term (current) drug therapy
CPT/HCPCS: 33210; 36415; 71045; 80048; 80053; 80061; 82550; 82553; 82948; 83880; 84443; 84484; 85025; 85610; 85730; 93005; 93306; 96374; 97139; 99284; C1769; J0360; J0461; J0690; J1170; J1940; J2001; J2250; J2270; J2405; J3010; J3370; J7030; J7040